=== PATIENT | male | born 1955 | race Caucasian/White ===

== ENCOUNTER → 2016-11-04 | Outpatient (CLI) | payer BC | LOC: KOH-I 12:24 | DX: R05 Cough (principal) | CPT/HCPCS: 71020 ==

== ENCOUNTER → 2020-06-29 | Outpatient (CLI) | payer OTHER ==
[~2020-06-29] MED LIST: ALEVE220 M1 PO; ALEVE220 MG PO; BACLOFEN10 MG PO; BACTROBAN CREAM15 GM TOP; CALCIUM+D3 PO; CARDIZEM CD120 MG PO; DILTIAZEM 24HR120 M1 PO; DILTIAZEM ER120 M1 PO; DOXYCYCLINE HY100 M2 PO; FISH OIL 1,0001 EAC5 PO; GABAPENTIN300 MG PO; HYDROCHLOROTH12.5 MG PO; LIORESAL TAB 1010 MG PO; LISINOPRIL40 MG PO; LISINOPRIL5 MG PO; MICROZIDE12.5 MG PO; MIRTAZAPINE15 MG PO; NEURONTIN300 MG PO; OMEGA-31000 MG PO; PERCOCET 5/325 T1 EA PO; PERCOCET 7.5-31 EACH PO; REMERON15 MG PO; SENOKOT-S TABL1 EACH PO; SPIRIVA RESPIMAT4 GM INH; SPIRIVA18 MCG INH; VENTOLIN HFA 66.7 GM INH; VITAMIN E400 UNIT PO; ZESTRIL40 MG PO
== END ==
LOC: KOH-I 14:22
DX: M86.9 Osteomyelitis, unspecified (principal); M85.872 Other specified disorders of bone density and structure, left ankle and foot
CPT/HCPCS: 73610

== ENCOUNTER → 2021-02-19 | Outpatient (CLI) | payer MEDICARE | LOC: KOH-I 14:14 | DX: F17.210 Nicotine dependence, cigarettes, uncomplicated (principal); R91.8 Other nonspecific abnormal finding of lung field | CPT/HCPCS: 71271 ==